=== PATIENT | male | born 1950 | race Caucasian/White ===

== ENCOUNTER → 2016-08-09 | Outpatient (CLI) | payer OTHER ==
[2016-08-09 16:03] LABS: BLOOD UREA NITROGEN 12 mg/dL (7-22); BUN/CREATININE RATIO 13.33 (6-20); CALCIUM 9.7 mg/dL (8.7-10.7); EST GLOMERULAR FILTRATION > 60 (>60 ml/min/1.73m(2)); HDL CHOLESTEROL 64 mg/dL (40-150); SERUM ALBUMIN 3.9 g/dL (3.5-4.8); SERUM CHOLESTEROL 128 mg/dL (120-200)
== END ==
LOC: LAB 10:04
PROVIDERS: ATTEND Physician Assistant Medical
DX: E03.9 Hypothyroidism, unspecified (principal); I10 Essential (primary) hypertension; E78.2 Mixed hyperlipidemia; F17.200 Nicotine dependence, unspecified, uncomplicated; Z12.5 Encounter for screening for malignant neoplasm of prostate
CPT/HCPCS: 80053; 80061; 84439; 84443; 84481; G0103

== ENCOUNTER → 2016-08-10 | Outpatient (CLI) | payer OTHER ==
[2016-08-10 14:34] LABS: BASOPHILS # (AUTO) 0.04 10*3/UL; BASOPHILS % (AUTO) 0.9 % (0-1); EOSINOPHILS # (AUTO) 0.04 10*3/UL; EOSINOPHILS % (AUTO) 0.9 % (0-8); HEMOGLOBIN 16.2 g/dL (14.0-18.0); LYMPHOCYTES # (AUTO) 0.99 10*3/uL; MEAN CORPUSCULAR HEMOGLOBIN 33.9 PG (27-31); MEAN CORPUSCULAR VOLUME 94.1 FL (80-90); MEAN PLATELET VOLUME 11.1 FL (7.4-12.2); MONOCYTES # (AUTO) 0.61 10*3/UL (0.3-0.8); MONOCYTES % (AUTO) 14.1 % (5-15); NEUTROPHILS # (AUTO) 2.66 10*3/UL; NEUTROPHILS % (AUTO) 61.3 % (50-80); RED BLOOD COUNT 4.78 10^6/uL (4.70-6.10)
[2016-08-10 14:41] LABS: PLATELET MORPHOLOGY COMMENT NORMAL MORPHOLOGY (NORM); RBC MORPHOLOGY COMMENT NORMAL MORPHOLOGY (NORM); WBC MORPHOLOGY COMMENT NORMAL MORPHOLOGY (NORM)
== END ==
LOC: LAB 09:46
PROVIDERS: ATTEND Physician Assistant Medical
DX: R79.9 Abnormal finding of blood chemistry, unspecified (principal); I38 Endocarditis, valve unspecified; I10 Essential (primary) hypertension; M25.562 Pain in left knee; M25.561 Pain in right knee; F17.200 Nicotine dependence, unspecified, uncomplicated; Z12.5 Encounter for screening for malignant neoplasm of prostate
CPT/HCPCS: 83880; 85025; 86038; 86431